=== PATIENT | male | born 1955 | race Caucasian/White ===

== ENCOUNTER 2018-08-27 19:42 | Emergency (ER) | payer BC, OTHER ==
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
[2018-08-27 20:16] VITALS: BP 160/97
[2018-08-27] MEDS ORDERED: hydrOXYzine HCL TAB* 25 MG PO ONE (20:29)
== END 2018-08-27 20:47 | disposition home or self-care (01) ==
LOC: UCEAST 19:42
DX: S00.212A Abrasion of left eyelid and periocular area, initial encounter (principal); S50.811A Abrasion of right forearm, initial encounter; V53.5XXA Driver of pick-up truck or van injured in collision with car, pick-up truck or van in traffic accident, initial encounter; W22.11XA Striking against or struck by driver side automobile airbag, initial encounter; Y92.410 Unspecified street and highway as the place of occurrence of the external cause; F43.9 Reaction to severe stress, unspecified; Z85.46 Personal history of malignant neoplasm of prostate
CPT/HCPCS: 99212; A9270-GY; G0463